=== PATIENT | female | born 1980 | race Hispanic/Latino ===

== ENCOUNTER 2017-10-15 09:50 | Emergency (ER) | payer SELFPAY ==
[2017-10-15] MEDS ORDERED: CLINDAMYCIN 600 MG/D5% WATER 50 ML IV ONE (10:38)
== END 2017-10-15 11:24 | disposition home or self-care (01) ==
LOC: EDH 09:50
DX: N76.2 Acute vulvitis (principal); E11.9 Type 2 diabetes mellitus without complications
CPT/HCPCS: 81025; 96365; 99284; J3490

== ENCOUNTER 2020-01-29 18:47 | Inpatient (IN) | payer OTHER, SELFPAY ==
[~2020-01-29] VITALS: Ht 165.1 cm; Wt 111.4 kg
[2020-01-29 22:00] VITALS: RESP 16
[2020-01-30] MEDS ORDERED: ERGOCALCIFEROL (VITAMIN D2) 50,000 UNIT CAPSULE PO ONE (01:00)
[2020-01-30] MEDS ORDERED: DOXYCYCLINE 100MG+NS 250ML IV SCH (01:00)
[2020-01-30] MEDS ORDERED: ACETAMINOPHEN 325 MG TAB PO PRN ×2 (01:15)
[2020-01-30] MEDS ORDERED: GLUCAGON 1MG KIT 1 MG ML IM PRN (01:15)
[2020-01-30] MEDS ORDERED: DEXTROSE 50%-WATER 50 ML DISP.SYRIN IV PRN (01:15)
[2020-01-30] MEDS ORDERED: ONDANSETRON HCL 4 MG/2 ML VIAL IV PRN (01:15)
[2020-01-30] MEDS: ASPIRIN 325MG EC TAB 325 MG TABLET.DR PO SCH (01:15)
[2020-01-30] MEDS ORDERED: ASPIRIN 325MG EC TAB 325 MG TABLET.DR PO ONE (01:49)
[2020-01-30] MEDS ORDERED: ERGOCALCIFEROL (VITAMIN D2) 50,000 UNIT CAPSULE ONE (01:49)
[2020-01-30] MEDS ORDERED: NITROGLYCERIN 1GM/1 INCH PACKET TD ONE (01:50)
[2020-01-30] MEDS ORDERED: CEFTRIAXONE SODIUM 1 GM ONE ×2 (01:50→23:35)
[2020-01-30] MEDS ORDERED: DOXYCYCLINE 100MG+NS 250ML 250 ML IV ONE (02:36)
[2020-01-30] MEDS: INSULIN HUMULIN R 100 UNIT/ML 3ML SQ SCH ×4 (07:30→21:00)
[2020-01-30] MEDS: NITROGLYCERIN 1GM/1 INCH PACKET TD SCH ×2 (08:00→16:00)
[2020-01-30] MEDS ORDERED: GUAIFENESIN-DM 200/20 MG 10 ML ONE (08:01)
[2020-01-30] MEDS ORDERED: ASPIRIN 81MG TAB.CHEW ONE (08:02)
[2020-01-30] MEDS ORDERED: METHYLPREDNISOLONE SOD SUCC 40MG/ML 1ML ONE ×2 (08:02→17:59)
[2020-01-30] MEDS ORDERED: ZINC SULFATE 220 CAPSULE ONE (08:02)
[2020-01-30] MEDS ORDERED: ASCORBIC ACID 500 MG TAB ONE (08:02)
[2020-01-30] MEDS ORDERED: FAMOTIDINE/PF 20 MG/2 ML VIAL IV ONE (08:03)
[2020-01-30] MEDS ORDERED: INSULIN HUMULIN R 100 UNIT/ML 3ML ONE ×3 (08:24→18:00)
[2020-01-30] MEDS: ASPIRIN 81MG TAB.CHEW PO SCH (09:00)
[2020-01-30] MEDS: ZINC SULFATE 220 CAPSULE PO SCH (09:00)
[2020-01-30] MEDS: ASCORBIC ACID 500 MG TAB PO SCH (09:00)
[2020-01-30] MEDS: FAMOTIDINE/PF 20 MG/2 ML VIAL IV SCH ×2 (09:00→21:00)
[2020-01-30] MEDS ORDERED: ENOXAPARIN SODIUM 40 MG/0.4 ML SYRINGE SQ SCH (09:00)
[2020-01-30] MEDS: METHYLPREDNISOLONE SOD SUCC 40MG/ML 1ML IVP SCH ×3 (09:00→21:00)
[2020-01-30] MEDS ORDERED: ENOXAPARIN SODIUM 40 MG/0.4 ML SYRINGE SQ ONE (09:11)
[2020-01-30 10:19] VITALS: PULSE 82; RESP 16
[2020-01-30] MEDS ORDERED: POTASSIUM CHLORIDE 20 MEQ ERTAB PO ONE (11:12)
[2020-01-30] MEDS: CEFTRIAXONE SODIUM 1 GM IVP SCH (13:00)
[2020-01-30] MEDS ORDERED: POTASSIUM CHLORIDE 20 MEQ ERTAB PO SCH (13:05)
--- NOTE | 2020-01-30 13:31 | NUR ---
SPOKE TO SPOUSE FOR DC PLAN PATIENT LW SPOUSE/ CHILD ACTIVE, INDEPENDENT DRIVES, EMPLOYED, NO DME/ HOME HEALTH/ OR SERVICES.. SON AND SPOUSE ARE ALSO SICK, DCP HOME Addendum: 01/30/20 at 1340 by RAJIV ALVARADO RN CM Amended: Links added.
[2020-01-30] MEDS: DOXYCYCLINE 100MG+NS 250ML 250 ML IV SCH (15:00)
[2020-01-30 20:05] VITALS: PULSE 92; RESP 18
[2020-01-30] MEDS ORDERED: DOXYCYCLINE HYCLATE 100 MG TABLET PO ONE (23:35)
[2020-01-31] MEDS: CEFTRIAXONE SODIUM 1 GM IVP SCH ×2 (01:00→13:00)
[2020-01-31] MEDS: ASPIRIN 325MG EC TAB 325 MG TABLET.DR PO SCH (01:15)
[2020-01-31] MEDS ORDERED: METHYLPREDNISOLONE SOD SUCC 40MG/ML 1ML ONE ×2 (01:56→16:18)
[2020-01-31] MEDS: DOXYCYCLINE 100MG+NS 250ML 250 ML IV SCH ×2 (03:00→15:00)
[2020-01-31 07:03] VITALS: PULSE 96; RESP 32
[2020-01-31] MEDS: INSULIN HUMULIN R 100 UNIT/ML 3ML SQ SCH ×4 (07:30→21:00)
[2020-01-31] MEDS: NITROGLYCERIN 1GM/1 INCH PACKET TD SCH ×3 (08:00→16:00)
[2020-01-31] MEDS: ZINC SULFATE 220 CAPSULE PO SCH (09:00)
[2020-01-31] MEDS ORDERED: METHYLPREDNISOLONE SOD SUCC 125MG/2ML VIAL ONE (09:00)
[2020-01-31] MEDS: FAMOTIDINE/PF 20 MG/2 ML VIAL IV SCH ×2 (09:00→22:31)
[2020-01-31] MEDS: METHYLPREDNISOLONE SOD SUCC 40MG/ML 1ML IVP SCH ×3 (09:00→22:31)
[2020-01-31] MEDS ORDERED: ASCORBIC ACID 500 MG TAB ONE (09:00)
[2020-01-31] MEDS: ASPIRIN 81MG TAB.CHEW PO SCH (09:00)
[2020-01-31] MEDS: ASCORBIC ACID 500 MG TAB PO SCH (09:00)
[2020-01-31] MEDS ORDERED: ZINC SULFATE 220 CAPSULE ONE (09:00)
[2020-01-31] MEDS ORDERED: INSULIN HUMULIN R 100 UNIT/ML 3ML ONE ×2 (09:01→20:26)
[2020-01-31] MEDS ORDERED: NITROGLYCERIN 1GM/1 INCH PACKET TD ONE (09:01)
[2020-01-31] MEDS ORDERED: GUAIFENESIN-DM 200/20 MG 10 ML ONE (10:57)
[2020-01-31] MEDS ORDERED: CEFTRIAXONE SODIUM 1 GM ONE (14:21)
[2020-01-31] MEDS ORDERED: DOXYCYCLINE 100MG+NS 250ML 250 ML IV ONE (14:21)
[2020-01-31] MEDS ORDERED: FAMOTIDINE/PF 20 MG/2 ML VIAL IV ONE ×2 (14:22→20:15)
[2020-01-31 16:11] VITALS: PULSE 90; RESP 20
[2020-01-31 20:08] VITALS: PULSE 88; RESP 20
[2020-01-31 21:31] VITALS: BP 137/68; PULSE 85; RESP 22; TEMP 98.5
[2020-02-01] VITALS (8 sets, daily range): BP systolic 102–129; BP diastolic 52–69; PULSE 67–90; RESP 18–20; TEMP 97.1–98.5
[2020-02-01] MEDS: NITROGLYCERIN 1GM/1 INCH PACKET TD SCH ×2 (00:38→08:45)
[2020-02-01] MEDS: CEFTRIAXONE SODIUM 1 GM IVP SCH (00:38)
[2020-02-01] MEDS: ASPIRIN 325MG EC TAB 325 MG TABLET.DR PO SCH (01:15)
[2020-02-01] MEDS ORDERED: DOXYCYCLINE 100MG+NS 250ML 250 ML IV ONE (02:13)
[2020-02-01] MEDS: DOXYCYCLINE 100MG+NS 250ML 250 ML IV SCH (02:17)
[2020-02-01] MEDS: INSULIN HUMULIN R 100 UNIT/ML 3ML SQ SCH ×2 (06:55→23:53)
[2020-02-01] MEDS: ZINC SULFATE 220 CAPSULE PO SCH (08:44)
[2020-02-01] MEDS: ASPIRIN 81MG TAB.CHEW PO SCH (08:44)
[2020-02-01] MEDS: ASCORBIC ACID 500 MG TAB PO SCH (08:44)
[2020-02-01] MEDS: FAMOTIDINE/PF 20 MG/2 ML VIAL IV SCH ×2 (08:45→20:32)
[2020-02-01] MEDS: METHYLPREDNISOLONE SOD SUCC 40MG/ML 1ML IVP SCH ×3 (08:45→20:32)
[2020-02-01] MEDS: GUAIFENESIN-DM 200/20 MG 10 ML PO PRN ×2 (08:53→18:52)
[2020-02-01] MEDS ORDERED: INSULIN LISPRO 100 UNIT/ML 3ML SQ SCH (11:30)
--- NOTE | 2020-02-01 11:46 | NUR ---
Pt sating 99% on 5lpm NC. Decreased oxygen to 4lpm and will reassess. Informed pt to call if feeling SOB. No s/s of distress noted at this time. Will continue to monitor.
[2020-02-01] MEDS: INSULIN LISPRO 100 UNIT/ML 3ML SQ SCH ×4 (12:08→20:33)
--- NOTE | 2020-02-01 14:20 | NUR ---
Reassess oxygen sats 98% on 4lpm decreased to 3lpm NC will continue to monitor.
[2020-02-01] MEDS: ENOXAPARIN SODIUM 40 MG/0.4 ML SYRINGE SQ SCH (20:31)
[2020-02-01] MEDS: INSULIN GLARGINE 100 UNITS/ML 10 ML VIAL SQ SCH (20:34)
[2020-02-01] MEDS ORDERED: INSULIN HUMULIN R 100 UNIT/ML 3ML ONE (23:18)
[2020-02-02] VITALS (8 sets, daily range): BP systolic 97–120; BP diastolic 47–71; PULSE 59–86; RESP 16–20; TEMP 97.1–98.5
--- NOTE | 2020-02-02 02:22 | NUR ---
Pt glucose elevated this shfit after nightly BS check AJ oncall notified rechecked in 30 minutes per order. AJ notified order given for one time dose of regular insulin 5 units. rechecked BS slightly decreased to 429, pt states drank "sprite" provided from family will reassess AM glucose check. No acute distress noted will continue to monitor
[2020-02-02] MEDS: INSULIN LISPRO 100 UNIT/ML 3ML SQ SCH ×7 (06:09→21:40)
[2020-02-02] MEDS ORDERED: INSULIN LISPRO 100 UNIT/ML 3ML SQ SCH (07:30)
[2020-02-02] MEDS: ENOXAPARIN SODIUM 40 MG/0.4 ML SYRINGE SQ SCH ×2 (08:52→21:38)
[2020-02-02] MEDS: ASPIRIN 81MG TAB.CHEW PO SCH (08:53)
[2020-02-02] MEDS: ASCORBIC ACID 500 MG TAB PO SCH (08:53)
[2020-02-02] MEDS: FAMOTIDINE/PF 20 MG/2 ML VIAL IV SCH ×2 (08:53→21:38)
[2020-02-02] MEDS: METHYLPREDNISOLONE SOD SUCC 40MG/ML 1ML IVP SCH ×2 (08:53→15:05)
[2020-02-02] MEDS: ZINC SULFATE 220 CAPSULE PO SCH (08:53)
--- NOTE | 2020-02-02 15:23 | NUR ---
RT placed on 2lpm NC due to increased CO2 after ABG
[2020-02-02] MEDS ORDERED: REMDESIVIR (INVESTIGATIONAL) 200 MG in SODIUM CHLORIDE 0.9% 250 ML IV SCH (19:45)
[2020-02-02] MEDS: GUAIFENESIN-DM 200/20 MG 10 ML PO PRN (21:38)
[2020-02-02] MEDS: INSULIN GLARGINE 100 UNITS/ML 10 ML VIAL SQ SCH (21:39)
[2020-02-02] MEDS: INSULIN HUMULIN R 100 UNIT/ML 3ML SQ SCH (21:41)
[2020-02-03] VITALS (8 sets, daily range): BP systolic 87–95; BP diastolic 49–62; PULSE 54–71; RESP 17–21; TEMP 97.9–98.2
[2020-02-03] MEDS: ASPIRIN 325MG EC TAB 325 MG TABLET.DR PO SCH ×2 (01:32→22:08)
[2020-02-03] MEDS: INSULIN LISPRO 100 UNIT/ML 3ML SQ SCH ×7 (06:43→20:56)
[2020-02-03] MEDS: PHARMACY COMMUNICATION** REMDESIVIR ORDER MISC SCH ×3 (06:45→22:07)
[2020-02-03] MEDS: ZINC SULFATE 220 CAPSULE PO SCH (09:18)
[2020-02-03] MEDS: ASPIRIN 81MG TAB.CHEW PO SCH (09:18)
[2020-02-03] MEDS: ENOXAPARIN SODIUM 40 MG/0.4 ML SYRINGE SQ SCH ×2 (09:22→20:57)
[2020-02-03] MEDS: FAMOTIDINE/PF 20 MG/2 ML VIAL IV SCH ×2 (09:22→20:56)
[2020-02-03] MEDS: ASCORBIC ACID 500 MG TAB PO SCH (09:22)
[2020-02-03] MEDS: METHYLPREDNISOLONE SOD SUCC 40MG/ML 1ML IVP SCH (09:32)
--- NOTE | 2020-02-03 17:33 | NUR ---
Patient's VSS with no complaints of pain or discomfort. Patient on room air, tolerating well. Pending possible DC for tomorrow.
[2020-02-03] MEDS ORDERED: REMDESIVIR (INVESTIGATIONAL) 100 MG in SODIUM CHLORIDE 0.9% 250 ML IV SCH (19:45)
[2020-02-03] MEDS ORDERED: INSULIN GLARGINE 100 UNITS/ML 10 ML VIAL SQ SCH (21:00)
[2020-02-03] MEDS: GUAIFENESIN-DM 200/20 MG 10 ML PO PRN (23:45)
[2020-02-04 03:37] VITALS: BP 96/49; PULSE 79; RESP 17; TEMP 97.9
[2020-02-04] MEDS: INSULIN LISPRO 100 UNIT/ML 3ML SQ SCH ×4 (05:36→08:38)
[2020-02-04] MEDS: PHARMACY COMMUNICATION** REMDESIVIR ORDER MISC SCH ×2 (05:36→08:22)
[2020-02-04 08:00] VITALS: BP 92/58; PULSE 67; RESP 18; TEMP 97.7
[2020-02-04] MEDS: FAMOTIDINE/PF 20 MG/2 ML VIAL IV SCH (08:20)
[2020-02-04] MEDS: ASPIRIN 81MG TAB.CHEW PO SCH (08:20)
[2020-02-04] MEDS: ASCORBIC ACID 500 MG TAB PO SCH (08:21)
[2020-02-04] MEDS: ENOXAPARIN SODIUM 40 MG/0.4 ML SYRINGE SQ SCH (08:21)
[2020-02-04] MEDS: ZINC SULFATE 220 CAPSULE PO SCH (08:21)
[2020-02-04] MEDS: METHYLPREDNISOLONE SOD SUCC 40MG/ML 1ML IVP SCH (08:26)
[2020-02-04 11:30] VITALS: BP 117/61; PULSE 79; RESP 18; TEMP 98.1
--- NOTE | 2020-02-04 11:54 | NUR ---
cm note spoke to shireen primary nurse , regarding rx assist coupon for eliquis, will fax to nurse's station. and she can provide to pt at time of dc. she verbalizes understanding.
--- NOTE | 2020-02-04 14:47 | NUR ---
Patient's VSS with no complaints of pain or discomfort. Patient on room air, tolerating well. Cleared for DC by primary team. DC instructions reviewed and patient verbalized understanding. Ferny amaya and workk letter given.
== END 2020-02-04 14:50 | disposition home or self-care (01) | DRG 177 ==
LOC: EDH 18:47 → EDHIP 18:48 → 2DH 01-31 21:18 → 4AH 02-03 04:06
PROVIDERS: ADMIT Internal Medicine; ATTEND Internal Medicine
DX: U07.1 COVID-19 (principal); J96.01 Acute respiratory failure with hypoxia; J12.89 Other viral pneumonia; N39.0 Urinary tract infection, site not specified; R07.89 Other chest pain; I44.7 Left bundle-branch block, unspecified; E11.9 Type 2 diabetes mellitus without complications; D64.9 Anemia, unspecified; E87.6 Hypokalemia

== ENCOUNTER 2021-05-14 15:56 | Observation (INO) | payer OTHER ==
[~2021-05-14] VITALS: Ht 162.6 cm; Wt 108.4 kg
[~2021-05-14 15:56] MED LIST: APIX2.5T PO; DEXA6TAB PO; GLIP5POW MC; INSLAN SQ; METF-444 PO
[2021-05-14 16:08] VITALS: BP 121/68
[2021-05-14] MEDS ORDERED: 0.9% NACL 250ML 250 ML IV SCH (16:30)
[2021-05-14 16:52] LABS: HEMATOCRIT 28.8 % (36-48)
[2021-05-14] MEDS ORDERED: VITAD50000 PO (16:57)
[2021-05-14 18:00] VITALS: BP 129/72
[2021-05-14 18:05] VITALS: BP 114/68
[2021-05-14 18:15] VITALS: BP 124/72
[2021-05-14 19:17] VITALS: BP 124/73
[2021-05-14 23:05] VITALS: BP 106/56
[2021-05-15 01:28] LABS: HEMATOCRIT 31.2 % (36-48)
== END 2021-05-15 01:40 | disposition home or self-care (01) ==
LOC: WSH 16:04
PROVIDERS: ADMIT Obstetrics & Gynecology; ATTEND Obstetrics & Gynecology
DX: D64.9 Anemia, unspecified (principal)
CPT/HCPCS: 36415 ×2; 36430; 85014 ×2; 85018 ×2; 86850; 86900; 86901; 86923; G0378 ×5; G0379; P9016 ×2

== ENCOUNTER 2024-07-23 09:41 | Emergency (ER) | payer SELFPAY ==
[~2024-07-23] VITALS: Ht 167.6 cm; Wt 104.3 kg
[~2024-07-23 09:41] MED LIST changes: -APIX2.5T PO; -DEXA6TAB PO; +DOCU-116 PO; +FERR-72 PO; +GLIM4TAB36 PO; -GLIP5POW MC; +HYDR-4060 PO; +IBUP-2077 PO; -INSLAN SQ; -METF-444 PO; +METF-446 PO; +TAMO20TA4 PO; +TIRZ2.5P SQ; +VITAD50000 PO; +vitamin d PO
[2024-07-23 10:28] LABS: RAPID GROUP A STREP negative (NEGATIVE)
[2024-07-23 10:36] LABS: INFLUENZA TYPE A Negative For Type A (NEGATIVE); INFLUENZA TYPE B Negative For Type B (NEGATIVE)
[2024-07-23 10:37] LABS: COVID19 (SARS ANTIGEN RAPID) PRESUMPTIVE NEGATIVE (NEGATIVE)
--- NOTE | 2024-07-23 11:05 | ERN ---
ED Note History of Present Illness Stated Complaint: COUGH Chief Complaint: Cough Time Seen by MD: 10:03 Dictation: PATIENT IS A 44-YEAR-OLD FEMALE HERE WITH FLU-LIKE SYMPTOMS TO INCLUDE CLEAR RHINITIS, SINUS CONGESTION MILD SORE THROAT AND DRY COUGH SHE HAS HAD FOR ONE WEEK. SHE DENIES NAUSEA VOMITING NO FEVER NO CHILLS AT THIS TIME. NO DIARRHEA. NO LOSS OF TASTE OR SMELL STATES SHE DOES NOT GO SEE HER PRIMARY CARE DOCTOR BECAUSE I HAVE NO MEDICAID. Allergies: Coded Allergies: No Known Drug Allergies (Verified Allergy, Unknown, 01/30/20) Home Meds Reported Medications Ibuprofen (Ibuprofen 800 mg Tab) 800 Mg Tab, 800 MG PO TID PRN for PAIN, #90 TAB 09/01/22 Docusate Sodium (Colace) 100 Mg Capsule, 100 MG PO BID, #30 CAP 09/01/22 Glimepiride (Glimepiride) 4 Mg Tablet, 4 MG PO BID, TAB 08/07/22 Hydrocodone/Acetaminophen (Hydrocodon-Acetaminophen 5-325) 1 Each Tablet, 2 EACH PO Q8H PRN for PAIN, TAB 08/07/22 Tamoxifen Citrate (Tamoxifen Citrate) 20 Mg Tablet, 20 MG PO AM, TAB 08/07/22 Ferrous Sulfate (Ferrous Sulfate) 325 Mg Tablet, 325 MG PO TID, TAB 08/07/22 Metformin HCl (Metformin HCl) 1,000 Mg Tablet, 1000 MG PO BID, TAB 08/07/22 Tirzepatide (Mounjaro) 2.5 Mg/0.5 Ml Pen.injctr, 2.5 MG SQ weekly 07/10/22 Glimepiride (Glimepiride) 4 Mg Tablet, 4 MG PO BID, TAB 07/10/22 Ferrous Sulfate (Ferrous Sulfate) 325 Mg Tablet, 325 MG PO TID, TAB 07/10/22 [vitamin d] No Conflict Check, 92573 UNITS PO weekly 07/10/22 Tamoxifen Citrate (Tamoxifen Citrate) 20 Mg Tablet, 20 MG PO AM, TAB 07/10/22 Metformin HCl (Metformin HCl) 1,000 Mg Tablet, 1000 MG PO BID, TAB 07/10/22 Cholecalciferol (Vitamin D3) 50,000 Units Cap, 03757 UNITS PO QWEEK, CAP 05/14/21 Past Medical History Past Medical History: Diabetes-Type II Surgical History: Appendectomy, Hysterectomy, Other Surgical History Other: RIGHT BREAST History: Not Applicable RN Note Reviewed/Agreed w/PFSH: Yes Review of System Dictation CONSTITUTIONAL: NEGATIVE EXCEPT FOR HPI HEAD/FACE: NEGATIVE EXCEPT FOR HPI EENT: NEGATIVE EXCEPT FOR HPI CLEAR RHINITIS/CONGESTION WITH SORE THROAT RESPIRATORY: NEGATIVE EXCEPT FOR HPI DRY COUGH GASTROINTESTINAL/ABDOMINAL: NEGATIVE EXCEPT FOR HPI GENITOURINARY: NEGATIVE EXCEPT FOR HPI MUSCULOSKELETAL: NEGATIVE EXCEPT FOR HPI INTEGUMENTARY: NEGATIVE EXCEPT FOR HPI NEUROLOGICAL/PSYCH: NEGATIVE EXCEPT FOR HPI HEMATOLOGIC/LYMPHATIC: NEGATIVE EXCEPT FOR HPI ALL SYSTEMS NEGATIVE, EXCEPT NOTED ABOVE. 13 POINT REVIEW OF SYSTEMS ASSESSED AND ALL NEGATIVE EXCEPT FOR ABOVE. Initial Vital Sign VS Vital Signs Date Time Temp Pulse Resp B/P (MAP) Pulse Ox O2 Delivery O2 Flow Rate FiO2 07/23/24 09:42 96.4 61 20 125/72 98 Room Air 0 07/23/24 09:45 21 Physical Exam Dictation VITAL SIGNS REVIEWED GENERAL APPEARANCE: ALERT, ORIENTED X 3, MY ACUTE DISTRESS, WELL DEVELOPED, NOURISHED. HEAD AND FACE: NON-TRAUMATIC. EYES: PERRL, PINK CONJUNCTIVAS, EYELID NO TRAUMA, ANTERIOR CHAMBER WITH ARCUS SENILIS. EARS: PINNAS INTACT AND NO SIGNS OF TRAUMA OR ERYTHEMA EAR CANALS CLEAR AND NO DISCHARGE TM NO ERYTHEMA NOSE: CLEAR DISCHARGE, NO BLEEDING. OROPHARYNX: MOUTH NORMAL, TONGUE PINK, PHARYNX CLEAR, MILD PHARYNGEAL ERYTHEMA, TONSILS NO EXUDATES, NO ABSCESSES NOTED, MUCOUS MEMBRANE MOIST NECK: SUPPLE, NON-TENDER, NO THYROMEGALY, NO MASSES, NO JVD, NO BRUITS BREAST:DEFERRED CHEST:NO TENDERNESS, NO CREPITUS, NO PARADOXICAL MOVEMENT, NO RETRACTIONS LUNGS:CLEAR, WELL-VENTILATED, SYMMETRIC, NO RALES, NO WHEEZING, NO RHONCHI, NO STRIDOR, GOOD BREATH SOUNDS BILATERALLY HEART: REGULAR RATE, REGULAR RHYTHM, NO MURMUR, NO GALLOPS VASCULAR: NO PERIPHERAL EDEMA, ABDOMEN: SOFT, POSITIVE BOWEL SOUNDS, NONDISTENDED, NO GUARDING, NONTENDER, NO REBOUND, NO MASSES NO HEPATOMEGALY, NO SPLENOMEGALY, NO FREEDMAN'S SIGN, NO HERNIAS. RECTAL: DEFERRED GENITAL: DEFERRED NEUROLOGICAL: NORMAL SPEECH, MOTOR FUNCTION INTACT, SENSORY FUNCTION INTACT MUSCULOSKELETAL: NECK NONTENDER, FULL RANGE OF MOTION, BACK NONTENDER, FULL RANGE OF MOTION, EXTREMITIES: NONTENDER, FULL RANGE OF MOTION SKIN: COLOR PINK, DRY, NO TURGOR, NO RASH, NO LACERATIONS, NO ABRASIONS, NO CONTUSIONS. LYMPHATIC: DEFERRED Results (Laboratory/Radiology) Laboratory/Radiology Laboratory Tests Test 07/23/24 09:48 Influenza Type A Antigen Negative For Type A Influenza Type B Antigen Negative For Type B SARS-CoV-2 Antigen (Rapid) PRESUMPTIVE NEGATIVE Group A Streptococcus Rapid negative (NEGATIVE) Labs Reviewed?: Yes ED Course ED Course Orders Procedure Category Date Status Time Rapid (Group A Strep) LAB 07/23/24 Complete 09:46 Influenza Type A & B, LAB 07/23/24 Complete Rapid 09:46 Covid19 (Sars Antigen LAB 07/23/24 Complete Rapid) 09:46 Vital Signs Date Time Temp Pulse Resp B/P (MAP) Pulse Ox O2 Delivery O2 Flow Rate FiO2 07/23/24 09:45 96.4 61 20 125/72 98 Room Air* 0 21 07/23/24 09:42 96.4 61 20 125/72 98 Room Air 0 1130, PATIENT HAS PERSISTENT DRY COUGH WE WILL BE GIVEN DECADRON FOR VIRAL URI WITH COUGH Medical Decision Making MDM MEDICAL DECISION-MAKING BASED ON SWABS FOR FLU COVID AND STREP AND CHEST X-RAY. CHEST X-RAY NEGATIVE, SWABS NEGATIVE PATIENT GIVEN DECADRON8 MG IM AND DISCHARGED HOME WITH VIRAL URI WITH COUGH SHE WILL BE GIVEN SUPPORTIVE MEDICATIONS AND TOLD TO SEE HER DOCTOR DX & DISP Disposition: Discharge Departure Impression: Primary Impression: Viral URI with cough Condition: Stable Scripts Albuterol Sulfate (Ventolin Hfa/Proventil Hfa/Proair Hfa) 90 Mcg Puff 2 PUFF IH Q4H PRN for SHORTNESS OF BREATH/WHEEZING for 30 Days, #1 INH 0 Refills Prov: FLORENCIA ALCANTAR DINKER 07/23/24 Benzonatate (Tessalon Perles) 100 Mg Cap 100 MG PO TID for cough, #30 CAP 0 Refills Prov: FLORENCIA ALCANTAR DINKER 07/23/24 Additional Instructions: FOLLOW-UP WITH PRIMARY CARE PROVIDER IN 1 TO 2 DAYS. TAKE MEDICATIONS DIRECTED HERE IN THE EMERGENCY ROOM. OKAY TO CONTINUE HOME MEDICATIONS UNLESS OTHERWISE DISCUSSED DURING YOUR VISIT IN THE EMERGENCY ROOM TODAY. RETURN TO YOUR NEAREST EMERGENCY ROOM IF SYMPTOMS WORSEN OR IF THERE IS NO IMPROVEMENT. CALL 911 IF YOU NEED IMMEDIATE ASSISTANCE. TAKE TYLENOL OR MOTRIN [id number] NEEDED AND IF NO CONTRAINDICATIONS ARE PRESENT. INCREASE ORAL HYDRATION. A WOUND CULTURE OR URINE CULTURE WAS ORDERED HERE IN THE EMERGENCY ROOM DEPARTMENT PLEASE FOLLOW-UP WITH PRIMARY CARE PROVIDER AND ADVISE THEM TO GET REPEAT PORTS FROM OUR FACILITY. IF YOU HAD ANY DANIELLA WRAP/SPLINTS THAT WERE APPLIED HERE, PLEASE DO NOT REMOVE THEM UNTIL YOU SEE YOUR PRIMARY CARE OR SPECIALTY. USE ALBUTEROL INHALER EVERY4 HOURS WHILE AWAKE FOR THE NEXT THREE DAYS. TAKE TESSALON DIRECTED FOR COUGH AND SEE YOUR PRIMARY CARE DOCTOR. Referrals: SELF,REFERRAL (PCP) Time of Disposition: 11:34 I have reviewed the case, and I agree with, Diagnosis and Plan FLORENCIA ALCANTAR NP Jul 23, 2024 11:05
[2024-07-23] MEDS ORDERED: ALBUHFA IH (11:37)
[2024-07-23] MEDS ORDERED: BENZ-39 PO (11:37)
[2024-07-23] MEDS: dexaMETHasone SOD PHOSPHATE 4 MG/ML 1ML VIAL IM ONE (12:33)
[2024-07-23 12:41] VITALS: BP 117/82; PULSE 90; RESP 16; TEMP 98.2; O2SAT 98
== END 2024-07-23 13:19 | disposition home or self-care (01) ==
LOC: EDH 09:41
DX: J06.9 Acute upper respiratory infection, unspecified (principal); B97.89 Other viral agents as the cause of diseases classified elsewhere; E11.9 Type 2 diabetes mellitus without complications; Z79.84 Long term (current) use of oral hypoglycemic drugs; Z79.85 Long-term (current) use of injectable non-insulin antidiabetic drugs; Z90.49 Acquired absence of other specified parts of digestive tract; Z90.710 Acquired absence of both cervix and uterus; Z20.822 Contact with and (suspected) exposure to COVID-19
CPT/HCPCS: 99283; 87426; 87880; 87804 ×2; 96372; J1100